=== PATIENT | male | born 1950 | race Caucasian/White ===

== ENCOUNTER 2024-05-11 03:12 | Inpatient (IN) ==
[2024-05-11 03:34] LABS: ABS Basophils 0.1 10^3/uL (0.0-0.1); ABS Eosinophils 0.2 10^3/uL (0.0-0.5); ABS Neutrophils 3.4 10^3/uL (1.5-7.6); Eosinophil % 3.1 %; Hematocrit 41.1 % (38-53); Hemoglobin 14.1 g/dL (13.2-16.3); Mean Corpuscular Hemoglobin 30.7 pg (27-33); Mean Corpuscular Hgb Conc 34.3 g/dL (31-36); Mean Corpuscular Volume 89.5 fL (80-97); Mean Platelet Volume 8.6 fL (7.5-11.2); Nucleated Red Blood Cells % 0.1 %/100WBC (0.0-0.8); Platelet Count 232 10^3/uL (150-450); Red Blood Count 4.59 10^6/uL (4.06-5.63); Red Cell Distribution Width 12.9 % (12-17); White Blood Count 7.7 10^3/uL (3.6-10.2)
[2024-05-11] MEDS: Heparin - STEMI 5,000 UNITS/ML 1 ml VIAL IV ONE (03:36)
[2024-05-11 03:58] LABS: INR 1.11 (0.85-1.14)
[2024-05-11] MEDS ORDERED: fentaNYL 100 mcg/2 ml 50 MCG/ML VIAL ONE (03:58)
[2024-05-11] MEDS ORDERED: Lidocaine 1% VIAL 10 MG/ML 30 ML VIAL ONE (03:58)
[2024-05-11] MEDS ORDERED: Midazolam 5 mg/5 ml VIAL 1 mg/ml 5 ml VIAL (5 mg) ONE (03:58)
[2024-05-11] MEDS ORDERED: Heparin - STEMI 5,000 UNITS/ML 1 ml VIAL IV ONE ×3 (03:58→04:17)
[2024-05-11] MEDS ORDERED: Lidocaine 1% MPF 5 ML VIAL ONE (03:58)
[2024-05-11] MEDS ORDERED: Heparin 2 UNITS/ML 1000 mls 3,000 ML IV ONE (03:59)
[2024-05-11] MEDS ORDERED: Iohexol 350 (CONTRAST) 200 ML MDV IV ONE (03:59)
[2024-05-11] MEDS ORDERED: nitroGLYCERIN DRIP 25,000 MCG/250 ML BTL ONE (03:59)
[2024-05-11] MEDS ORDERED: Heparin 5000 UNITS/ML 1 mL VIAL ONE (04:04)
[2024-05-11] MEDS ORDERED: VERAPAMIL 2.5 MG/ML 2 ML VIAL ** 5 mg/2 ml ONE (04:19)
[2024-05-11] MEDS ORDERED: Bivalirudin 250 MG VIAL ONE (04:36)
[2024-05-11] MEDS ORDERED: Heparin 2 UNITS/ML 1000 mls 1,000 ML IV ONE (04:37)
[2024-05-11 04:39] LABS: Potassium 3.8 mmol/L (3.5-5.0)
[2024-05-11 04:40] LABS: Albumin 4.3 g/dL (3.2-5.2); Calcium 9.4 mg/dL (8.6-10.3); Creatinine, Serum 0.9 mg/dL (0.67-1.17); Globulin 2.2 g/dL (2-4); Total Bilirubin 0.6 mg/dL (0.2-1.0); Total Protein 6.5 g/dL (6.4-8.9); eGFR CKD-EPI 91.3 (>60)
[2024-05-11 04:45] LABS: Activated Partial Thrombo Time 27.5 seconds (26.0-38.0)
[2024-05-11] MEDS ORDERED: Atropine 0.1 MG/ML 10 ml SYR (1 mg) ONE (04:46)
[2024-05-11 05:05] LABS: Magnesium 1.7 mg/dL (1.9-2.7)
[2024-05-11] MEDS ORDERED: Magnesium Sulfate IV 1GM/100ML 1 GM/100 ML BAG IV ONE (05:40)
[2024-05-11] MEDS ORDERED: Sulfur Hexaflouride MICROSPHR 25 MG VIAL IV PRN (06:28)
[2024-05-11] MEDS: NS 0.9% 1000 ml BAG 1,000 ML IV SCH (06:30)
[2024-05-11] MEDS: Potassium Chlor 20 meq TAB.ER PO ONE (09:59)
[2024-05-11 10:00] LABS: Magnesium 2.2 mg/dL (1.9-2.7)
[2024-05-11] MEDS: Magnesium Sulfate 2 gm BAG 2 GM/50 ML BAG IVPB ONE (10:03)
[2024-05-11 17:38] LABS: Calcium 8.8 mg/dL (8.6-10.3); Creatinine, Serum 0.82 mg/dL (0.67-1.17); Magnesium 2.3 mg/dL (1.9-2.7); Potassium 4.3 mmol/L (3.5-5.0); eGFR CKD-EPI 93.9 (>60)
[2024-05-12 05:34] LABS: Hemoglobin 12.6 g/dL (13.2-16.3); Mean Corpuscular Hemoglobin 30.8 pg (27-33); Mean Corpuscular Volume 90.5 fL (80-97); Mean Platelet Volume 8.6 fL (7.5-11.2); Platelet Count 188 10^3/uL (150-450); Red Blood Count 4.09 10^6/uL (4.06-5.63); Red Cell Distribution Width 13.1 % (12-17); White Blood Count 10.3 10^3/uL (3.6-10.2)
[2024-05-12 06:41] LABS: Albumin 3.6 g/dL (3.2-5.2); Albumin/Globulin Ratio 2.1 (1-3); Calcium 8.3 mg/dL (8.6-10.3); Creatinine, Serum 0.81 mg/dL (0.67-1.17); Globulin 1.7 g/dL (2-4); Potassium 4.6 mmol/L (3.5-5.0); Total Bilirubin 0.8 mg/dL (0.2-1.0); Total Protein 5.3 g/dL (6.4-8.9); eGFR CKD-EPI 94.3 (>60)
[2024-05-12 07:08] LABS: ABS Basophils 0.1 10^3/uL (0.0-0.1); ABS Eosinophils 0.1 10^3/uL (0.0-0.5); ABS Lymphocytes 1.8 10^3/uL (1.0-4.8); ABS Monocytes 1.7 10^3/uL (0.0-1.1); ABS Neutrophils 6.7 10^3/uL (1.5-7.6); ABS Nucleated RBC 0.01 10^3/ul; Eosinophil % 0.7 %; Lymphocyte % 17.3 %; Nucleated Red Blood Cells % 0.1 %/100WBC (0.0-0.8)
[2024-05-12 09:52] VITALS: BP 113/81
== END 2024-05-12 11:38 | disposition home or self-care (01) | DRG 174 ==
LOC: ED 03:12 → CHICATH 03:32 → SUATTDRO 06:59 → ICU 06:59 → MEDTELE 06:59
PROVIDERS: ATTEND Internal Medicine